=== PATIENT | male | born 1995 | race Caucasian/White ===

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

== ENCOUNTER 2017-09-24 11:14 | Emergency (ER) | payer BC ==
[~2017-09-24] VITALS: Ht 180.3 cm; Wt 130.7 kg
[~2017-09-24 11:14] MED LIST changes: +SIME80CH PO
[2017-09-24 11:16] VITALS: Ht 180.3 cm; Wt 130.7 kg
[2017-09-24] MEDS ORDERED: ONDANSETRON INJ 2 MG/ML 2 ML VIAL IV STA (12:05)
[2017-09-24] MEDS ORDERED: MoRPHine SULFATE 4 MG/ML 1 ML CARP\\VIAL IV STA (12:05)
[2017-09-24] MEDS ORDERED: SODIUM CHLORIDE 0.9% 1000ML 1,000 ML IV STA (12:05)
[2017-09-24 12:30] LABS: BASO % 0.1 %; BASO ABS # 0.01 K/uL (0-0.2); HEMOGLOBIN 14.3 g/dL (14.0-18.0); IG# 0.04 K/uL (0.00-0.02); LYMPH % 6.6 %; LYMPH ABS # 0.86 K/uL (1.2-3.4); MEAN CORPUSCULAR HEMOGLOBIN 28.6 pg (25-34); MEAN PLATELET VOLUME 9.3 fL (7.4-10.4); MONO % 6.9 %; MONO ABS # 0.91 K/uL (0.11-0.59); NEUT % 86.1 %; PLATELET COUNT 195 K/uL (130-400); RED CELL DISTRIBUTION WIDTH CV 13.6 % (11.5-14.5); RED CELL DISTRIBUTION WIDTH SD 41.5 fL (36.4-46.3); WHITE BLOOD COUNT 13.12 K/uL (4.8-10.8)
[2017-09-24] MEDS ORDERED: OPTIRAY 320 IV PRN (12:30)
[2017-09-24 12:47] LABS: INFLUENZA B ANTIGEN Neg for Influ B (NEG)
[2017-09-24 12:51] LABS: ALBUMIN 4.1 gm/dl (3.4-5.0); CALCIUM 8.9 mg/dl (8.5-10.1); CREATININE 1.13 mg/dl (0.60-1.40); POTASSIUM 3.6 mmol/L (3.5-5.1)
[2017-09-24 12:54] LABS: TOTAL PROTEIN 7.5 gm/dl (6.4-8.2)
[2017-09-24 13:23] LABS: INFLUENZA A PCR Neg for Influ A (NEG); INFLUENZA B PCR Neg for Influ B (NEG)
--- NOTE | 2017-09-24 14:50 | DIAGNOSTIC IMAGING REPORT ---
ABD/PELVIS IV AND ORAL CONT CT DOSE: 1693.74 mGy.cm HISTORY: Pain. Nausea. ABDOMINAL PAIN/GI TECHNIQUE: Multiaxial CT images of the abdomen and pelvis were performed following the use of intravenous and oral contrast. A dose lowering technique was utilized adhering to the principles of ALARA. COMPARISON STUDY: 10/18/2016 FINDINGS: Lung bases are clear. Mild splenomegaly persists although it is perhaps minimally improved from the prior study. Enhancement characteristics of liver spleen and pancreas appear uniform. Kidneys negative for hydronephrosis. The appendix is normal. There is suggestion of slight wall edema of the a sending, transverse, and to a lesser extent ascending colonic region. A trace may be present in the region of the sigmoid colon. This appearance is suggestive of mild nonspecific colitis. No evidence for abscess collection or obstruction. ] Nodes scattered throughout the mesentery most likely on a reactive basis. This is similar to prior studies in the past. IMPRESSION: 1. Findings consistent with a mild nonspecific colitis. 2. No evidence for abscess collection or obstruction. 3. Normal appendix. 4. Several reactive mesenteric and right lower quadrant lymph nodes which have been present on several prior studies. The above report was generated using voice recognition software. It may contain grammatical, syntax or spelling errors. Electronically signed by: Jose Florence M.D. 09/24/2017 2:49 PM Dictated Date/Time: 09/24/2017 2:44 PM
[2017-09-24] MEDS ORDERED: ACETAMINOPHEN 500 MG TAB PO ONE (15:06)
[2017-09-24] MEDS ORDERED: CIPROFLOXACIN 400MG / 200ML D5W IV STA (15:07)
[2017-09-24] MEDS ORDERED: CIPR1TAB10 PO (17:18)
[2017-09-24 17:21] VITALS: BP 128/67; PULSE 102; TEMP 37.6; O2SAT 98
--- NOTE | 2017-09-24 22:06 | EMERGENCY ROOM VISIT NOTE ---
ED Visit Note First contact with patient: 11:46 Chief Complaint: Diarrhea, fever, body aches, abdominal pain, headaches and vomiting. History of Present Illness: Mr. Eldridge is a 22 year-old white male who ambulates into the ED accompanied by his mother with complains of diarrhea, fevers, body aches, vomiting and diffuse abdominal pain. Historically patient reports history of GERD and no abdominal surgeries. Patient reports his symptoms started 4 days ago with what he describes as a mucousy appearing bowel movement. He then had no symptoms until the next day when he reports he felt like he was burping and passing gas a significant more than normal. On day 3 of his illness he reports he started getting crampy abdominal pain. This was diffuse and bilateral with slight prominence above the umbilicus. He then had return of mucousy stools that he was now describing as diarrhea; partly formed and watery. He has been having 3-4 episodes this type of stool for the last 2 days. Yesterday he became nauseated and had multiple episodes of vomiting and started developing body aches. He does report his abdominal pain is constant but does wax and wane in intensity based on his bowel movements and nausea/vomiting. He currently rates his discomfort 7/10. His pain is nonradiating. He has not taken any medications for any of the symptoms prior to arrival at the hospital. After his last episode of vomiting he started experiencing lumbar back pain in the sacroiliac joint areas bilaterally but does not feel this is a referred pain from his abdominal discomfort. He describes his headache as a global throbbing sensation without prominence. He does not rate this discomfort. He has noted worsening with vomiting. Denies any abnormal neurological symptoms with his headache. He denies any recent close contact with similar symptoms. He was seen at the [facility] today and was encouraged to come to the emergency department for further evaluation of care. At the clinic he was found to be febrile when she had not perceived or recognized prior to being seen this morning. Patient denies skin eruptions, skin color changes, upper respiratory tract symptoms, shortness of breath, chest pain, rectal bleeding, black/tarry stools, urinary symptoms, hematuria. Review of Systems: As noted above in history of present illness. All body systems were reviewed and found to be negative as noted above. Past Medical History: As previously noted and acne. Current Medications: Prilosec, Gas-X. Allergies to Medications: Penicillin, cefpodoxime. Social History: She is currently employed; he feels safe in his home environment ; he denies tobacco and alcohol use. Physical Examination: Vital Signs: Date Time Temp Pulse Resp B/P (MAP) Pulse Ox O2 Delivery O2 Flow Rate FiO2 09/24/17 17:21 37.6 102 18 128/67 98 Room Air 09/24/17 15:59 37.5 104 16 127/70 100 Room Air 09/24/17 15:03 38.0 102 18 143/73 97 Room Air 09/24/17 13:58 101 18 113/63 96 Room Air 09/24/17 12:23 112 09/24/17 12:15 113 20 140/90 96 Room Air 09/24/17 11:16 37.5 122 20 130/75 98 Room Air GENERAL: 22-year-old male in moderate distress due to pain, nontoxic-appearing, febrile and hemodynamically stable. NEUROLOGICAL: Awake, alert and oriented to person, place and time. Answering questions appropriately and following commands. Normal gait. Good hand eye coordination. SKIN: Warm, dry and pink. No soft tissue eruptions or trauma noted. HEENT: Atraumatic and normocephalic. PERRLA. Sclera white and conjunctiva pink. Oral cavity moist and pink. Pharynx is nonerythematous or edematous. Speech normal. No lymphadenopathy. Trachea midline. No jugular venous distention. BACK: Mild tenderness in the bilateral sacroiliac joints in the L5-S1 area. There is no bony deformity, bony crepitus, swelling or ecchymosis. Full range of motion of the waist at this area. No CVA tenderness. THORAX: Lungs sounds are clear to auscultation and equal bilaterally with symmetrical chest wall. No wheezing, rales or rhonchi. No crepitus, tenderness , subcutaneous air or deformities noted. HEART: Regular rate and rhythm. No gallops, rubs or murmurs are appreciated. ABDOMEN: Obese, soft and nontender. Positive bowel sounds in all quadrants. No guarding, rigidity or organomegaly. EXTREMITIES: Moves all extremities well on command and with purpose. All distal neurovascular statuses are intact and equal bilaterally. ED Course: Patient is assessed as noted above. Laboratory Testing: Test 09/24/17 12:20 09/24/17 13:16 09/24/17 17:00 Range/Units White Blood Count 13.12 4.8-10.8 K/uL Red Blood Count 5.00 4.7-6.1 M/uL Hemoglobin 14.3 14.0-18.0 g/dL Hematocrit 42.0 42-52 % Mean Corpuscular Volume 84.0 80-100 fL Mean Corpuscular Hemoglobin 28.6 25-34 pg Mean Corpuscular Hemoglobin Concent 34.0 32-36 g/dl Platelet Count 195 130-400 K/uL Mean Platelet Volume 9.3 7.4-10.4 fL Neutrophils (%) (Auto) 86.1 % Lymphocytes (%) (Auto) 6.6 % Monocytes (%) (Auto) 6.9 % Eosinophils (%) (Auto) 0.0 % Basophils (%) (Auto) 0.1 % Neutrophils # (Auto) 11.30 1.4-6.5 K/uL Lymphocytes # (Auto) 0.86 1.2-3.4 K/uL Monocytes # (Auto) 0.91 0.11-0.59 K/uL Eosinophils # (Auto) 0.00 0-0.5 K/uL Basophils # (Auto) 0.01 0-0.2 K/uL RDW Standard Deviation 41.5 36.4-46.3 fL RDW Coefficient of Variation 13.6 11.5-14.5 % Immature Granulocyte % (Auto) 0.3 % Immature Granulocyte # (Auto) 0.04 0.00-0.02 K/uL Sodium Level 136 136-145 mmol/L Potassium Level 3.6 3.5-5.1 mmol/L Chloride Level 102 98-107 mmol/L Carbon Dioxide Level 27 21-32 mmol/L Anion Gap 8.0 3-11 mmol/L Blood Urea Nitrogen 15 7-18 mg/dl Creatinine 1.13 0.60-1.40 mg/dl Est Creatinine Clear Calc Drug Dose 143.7 ml/min Estimated GFR () 107.8 Estimated GFR (Non- 93.1 BUN/Creatinine Ratio 13.4 10-20 Random Glucose 101 70-99 mg/dl Calcium Level 8.9 8.5-10.1 mg/dl Total Bilirubin 0.5 0.2-1 mg/dl Direct Bilirubin 0.1 0-0.2 mg/dl Aspartate Amino Transf (AST/SGOT) 16 15-37 U/L Alanine Aminotransferase (ALT/SGPT) 32 12-78 U/L Alkaline Phosphatase 56 45-117 U/L Total Protein 7.5 6.4-8.2 gm/dl Albumin 4.1 3.4-5.0 gm/dl Lipase 117 73-393 U/L Influenza Type A (RT-PCR) Neg for Influ A NEG Influenza Type A Antigen Neg for Influ A NEG Influenza Type B Antigen Neg for Influ B NEG Influenza Type B (RT-PCR) Neg for Influ B NEG Urine Color YELLOW Urine Appearance TURBID CLEAR Urine pH 5.0 4.5-7.5 Urine Specific [place] 1.031 1.000-1.030 Urine Protein NEG NEG Urine Glucose (UA) NEG NEG Urine Ketones NEG NEG Urine Occult Blood NEG NEG Urine Nitrite NEG NEG Urine Bilirubin NEG NEG Urine Urobilinogen NEG NEG Urine Leukocyte Esterase NEG NEG Urine WBC (Auto) 1-5 0-5 /hpf Urine RBC (Auto) 0-4 0-4 /hpf Urine Hyaline Casts (Auto) 1-5 0-5 /lpf Urine Epithelial Cells (Auto) 0-5 0-5 /lpf Urine Bacteria (Auto) NEG NEG Bedside Lactic Acid Venous 0.77 0.90-1.70 mmol/L Microbiology Results 09/24/17 C.difficile Toxin B Gene (PCR) - No C. difficile toxin B gene detected 09/24/17 Rotavirus Antigen - Negative for Rotavirus Antigen 09/24/17 WBC Smear -Positive for Campylobacter 09/24/17 Shiga Toxin Test - Pending 09/24/17 Stool Culture - Pending Contrast Abdominal and Pelvic CT: Was reviewed by myself and the radiologist showing findings consistent with mild nonspecific colitis; no evidence of abscess or fluid collections, no evidence of obstruction; normal-appearing appendix; several reactive mesenteric and right lower quadrant nodes which have been present since prior study. Patient was hydrated with normal saline and he received 4 mg of morphine IV and 4 mg of Zofran IV for her symptoms. Patient was reassessed multiple times during his stay in the emergency department. Patient was given 1 g of Tylenol by mouth for fever and 400 mg of ciprofloxacin IV for antibiotic coverage. Patient's case was reviewed with Dr. Us; we agreed on diagnostic approach , treatment, disposition and plan per Patient's case was consulted with Chayito the ED pharmacist for antibiotic choice. Patient mother were educated about today's findings and instructed on his treatment plan; they verbalized understanding and agreement with this plan Clinical Impression: Acute colitis. Decision-Making: Initially my differential diagnosis I considered colitis, C. difficile, perforated viscus, appendicitis, and other causes. Disposition: Patient discharged home in stable condition accompanied by his mother; prior to departure he was reassessed and subjectively reported he was feeling better; he reports decreased pain, no additional episodes of vomiting or diarrhea. His temperature was reassessed and had decreased to 37.6 orally. Plan: Patient was prescribed ciprofloxacin 500 mg 2 times a day for 10 days. Patient was encouraged to use probiotics with antibiotics. Patient was encouraged to alternate ibuprofen and acetaminophen every 3 hours as needed for persistent pain. Patient was encouraged to stay well-hydrated with increased clear fluids. Patient was encouraged to follow-up with family physician for recheck. Patient is encouraged return ED for worsening pain, worsening diarrhea, bloody diarrhea, worsening fevers, worsening nausea/vomiting or any new/concerning symptoms.
== END 2017-09-24 17:37 | disposition home or self-care (01) ==
LOC: C.EDB 11:15 → C.EDC 17:37
DX: K52.9 Noninfective gastroenteritis and colitis, unspecified (principal); Z79.899 Other long term (current) drug therapy; Z88.0 Allergy status to penicillin; Z88.8 Allergy status to other drugs, medicaments and biological substances